=== PATIENT | female | born 1940 | race Caucasian/White ===

== ENCOUNTER 2018-04-23 10:28 | Observation (INO) | payer OTHER, MEDICARE ==
--- NOTE | 2018-04-23 10:41 | EDPHY ---
H & P Stated Complaint: Transient midsternal CP w/rad to R neck Time Seen by Provider: 04/23/18 10:40 - Personal History Current Tetanus Diphtheria and Acellular Pertussis (TDAP): Yes - Medical/Surgical History Hx Cardiac Disease: Yes Other PMH: TONSILS. D&C. CARDIAC STENT - Social History Smoking Status: Never smoked Constitutional: Initial Vital Signs Temperature (C) 36.5 C 04/23/18 10:34 Heart Rate 65 04/23/18 10:34 Respiratory Rate 16 04/23/18 10:34 Blood Pressure 145/97 H 04/23/18 10:34 O2 Sat (%) 100 04/23/18 10:34 O2 Delivery Mode Room Air Allergies/Adverse Reactions: Penicillins Allergy (Unknown, Verified 04/23/18 11:27) Unknown NSAIDS (Non-Steroidal Anti-Inflamma [Nsaids] Adverse Reaction (Intermediate, Verified 04/23/18 11:27) Abdominal Pain Home Medications: Medication Instructions Recorded NK [No Known Home Meds] 04/23/18 Medical Decision Making - Diagnostics Imaging Results: Imaging Impressions Chest X-Ray 04/23/18 10:42 Impression: 1. Mild bronchitis/airways disease. 2. No pneumonia, pleural effusion, pneumothorax, or congestive heart failure. Imaging: I viewed and interpreted images myself ED Course/Re-evaluation: CHIEF COMPLAINT: Chest pain HISTORY OF PRESENT ILLNESS: The patient is a 77 y/o female with a history of CAD with a prior stent in 2009 who complains of acute onset chest pain this morning that began in the last 45 minutes. She is quite active at baseline and biked yesterday without issue. She woke up this morning feeling normal, but around 10:00 she developed chest pain radiating bilaterally across her chest with associated sharp right jaw pain. She says, "I was thinking it was heart burn." She was at rest when symptoms began and thinks they could be related to the 3 cups of coffee she had this morning. She currently denies pain. These symptoms do not feel similar to the angina she experienced in 2010 that lead to her stent, which she primarily felt in her back and arms. She does not see life enrichment manager regularly and has had no catheterizations since 2009. She describes herself as healthy and active. REVIEW OF SYSTEMS: A comprehensive 10 system review of systems is otherwise negative aside from elements mentioned in the history of present illness and medical decision making. PHYSICAL EXAM: HR, BP, O2 Sat, RR. Temp noted General Appearance: Alert, well hydrated, appropriate, and non-toxic appearing. Head: Atraumatic without scalp tenderness or obvious injury Eyes: Pupils equal, round, reactive to light and accommodation, EOMI, no trauma , no injection. Nose: Atraumatic, no rhinorrhea, clear. Throat: There is no erythema or exudates, no lesions, normal tonsils, mucus membranes moist. Neck: Supple,nontender, no lymphadenopathy. Respiratory: No retractions, no distress, no wheezes, and no accessory muscle use. Lungs are clear to auscultation bilaterally. Cardiovascular: Regular rate and rhythm, no murmurs, rubs, or gallops. Good capillary refill all extremities. Gastrointestinal: Abdomen is soft, nontender, non-distended, no masses, no rebound, no guarding, no peritoneal signs. Musculoskeletal: Normal active ROM of all extremities, atraumatic. Neurological: Alert, appropriate, and interactive. The patient has non-focal cranial nerves, motor, sensory, and cerebellar exam. Skin: No rashes, good turgor, no nodules on palpation. Past medical history: CAD, GERD Past surgical history: Cardiac stent 2010 Family history: Noncontributory Social history: Exercises regularly. [employer]: Dr. Ruiz. DIAGNOSTICS/PROCEDURES/CRITICAL CARE TIME: The 12 lead EKG was interpreted by myself. Sinus mechanism with PVCs and PACs. See hard copy and/or "tracemaster" electronic copy for interpretation. Chest x-ray: airways disease, no infiltrate. Chest CTA: coronary calcifications, no PE DIFFERENTIAL DIAGNOSIS: The differential diagnosis for the patient's chest pain included but was not limited to myocardial ischemia, pulmonary embolus, chest wall pain, pleural inflammation, and pulmonary infectious causes. MEDICAL DECISION MAKING: This is a 77 y/o female with a history of CAD post stenting who presents with acute onset chest and jaw pain. Her exam is unremarkable. Her story and history is concerning for cardiac etiology. Plan for standard cardiac work up including IV, labs including d-dimer and troponin, EKG, chest x-ray. 324mg PO aspirin administered. Plan for admission for further evaluation and provocative cardiac work up. 1101: Consulted with Dr. Gomes, life enrichment manager. He will consult during admission. Troponin is negative. 1110: Dr. Gomes at bedside evaluating patient. D-dimer elevated at 0.82. Chest CTA ordered to rule out PE. - Data Points Laboratory Results: Laboratory Results 04/23/18 10:50 04/23/18 10:50 04/23/18 04/23/18 04/23/18 10:53 10:50 10:50 WBC RBC Hgb Hct MCV MCH MCHC RDW Plt Count MPV Neut % (Auto) Lymph % (Auto) Franklin % (Auto) Eos % (Auto) Baso % (Auto) Nucleat RBC Rel Count Absolute Neuts (auto) Absolute Lymphs (auto) Absolute Monos (auto) Absolute Eos (auto) Absolute Basos (auto) Absolute Nucleated RBC Immature Gran % Immature Gran # D-Dimer 0.82 ug/mLFEU H ug/mLFEU (0.00-0.50) Sodium 139 mEq/L mEq/L (135-145) Potassium 4.5 mEq/L mEq/L (3.3-5.0) Chloride 104 mEq/L mEq/L (97-110) Carbon Dioxide 23 mEq/l mEq/l (22-31) Anion Gap 12 mEq/L mEq/L (6-14) BUN 19 mg/dL mg/dL (7-23) Creatinine 0.9 mg/dL mg/dL (0.6-1.0) Estimated GFR > 60 Glucose 94 mg/dL mg/dL (70-100) Calcium 9.7 mg/dL mg/dL (8.5-10.4) POC Troponin I 0.00 ng/mL ng/mL (0.00-0.08) NT-Pro-B Natriuret Pep 255 pg/mL pg/mL (0-450) 04/23/18 10:50 WBC 4.50 10^3/uL 10^3/uL (3.80-9.50) RBC 4.89 10^6/uL 10^6/uL (4.18-5.33) Hgb 14.8 g/dL g/dL (12.6-16.3) Hct 44.2 % % (38.0-47.0) MCV 90.4 fL fL (81.5-99.8) MCH 30.3 pg pg (27.9-34.1) MCHC 33.5 g/dL g/dL (32.4-36.7) RDW 13.2 % % (11.5-15.2) Plt Count 196 10^3/uL 10^3/uL (150-400) MPV 10.0 fL fL (8.7-11.7) Neut % (Auto) 51.6 % % (39.3-74.2) Lymph % (Auto) 36.9 % % (15.0-45.0) Franklin % (Auto) 9.1 % % (4.5-13.0) Eos % (Auto) 1.3 % % (0.6-7.6) Baso % (Auto) 0.9 % % (0.3-1.7) Nucleat RBC Rel Count 0.0 % % (0.0-0.2) Absolute Neuts (auto) 2.32 10^3/uL 10^3/uL (1.70-6.50) Absolute Lymphs (auto) 1.66 10^3/uL 10^3/uL (1.00-3.00) Absolute Monos (auto) 0.41 10^3/uL 10^3/uL (0.30-0.80) Absolute Eos (auto) 0.06 10^3/uL 10^3/uL (0.03-0.40) Absolute Basos (auto) 0.04 10^3/uL 10^3/uL (0.02-0.10) Absolute Nucleated RBC 0.00 10^3/uL 10^3/uL (0-0.01) Immature Gran % 0.2 % % (0.0-1.1) Immature Gran # 0.01 10^3/uL 10^3/uL (0.00-0.10) D-Dimer Sodium Potassium Chloride Carbon Dioxide Anion Gap BUN Creatinine Estimated GFR Glucose Calcium POC Troponin I NT-Pro-B Natriuret Pep Medications Given: Discontinued Medications Aspirin (Aspirin) 324 mg PO EDNOW ONE Stop: 04/23/18 10:43 Last Admin: 04/23/18 10:57 Dose: 324 mg Point of Care Test Results: Chemistry 04/23/18 10:53 POC Troponin I 0.00 ng/mL ng/mL (0.00-0.08) Departure - Departure Disposition: [facility] Inpatient Acute Clinical Impression: Chest pain Qualifiers: Chest pain type: other chest pain Qualified Code(s): R07.89 - Other chest pain Condition: Fair Report Scribed for: Fletcher Yousif Report Scribed by: Ashli Baxter Date of Report: 04/23/18 Time of Report: 11:04
[2018-04-23] MEDS ORDERED: ASPIRIN 81 MG CHEWABLE TAB PO ONE (10:42)
[2018-04-23 11:06] LABS: PLATELET COUNT 196 10^3/uL (150-400)
--- NOTE | 2018-04-23 11:27 | CPEKG ---
Test Reason : OPEN Blood Pressure : / mmHG Vent. Rate : 068 BPM Atrial Rate : 068 BPM P-R Int : 123 ms QRS Dur : 074 ms QT Int : 385 ms P-R-T Axes : 000 044 020 degrees QTc Int : 410 ms Sinus rhythm Multiform ventricular premature complexes Consider left ventricular hypertrophy Confirmed by Fletcher Yousif ([id number]) on 04/23/2018 11:26:43 AM Referred By: Confirmed By:Fletcher Yousif
--- NOTE | 2018-04-23 11:42 | ASMTCMCOM ---
CM Note CM Note Notes: Pt presented to the Emergency Department with midsternal chest pain. History includes cardiac stenting in 2009. Pt is single and lives alone. Pt to be admitted for further evaluation and treatment. Discharge needs remain unclear. Anticipate pt will likely discharge home independently with no identified needs when medically stable. CM will continue to follow. Discharge Plan: To be determined Date Signed: 04/23/2018 11:41 AM Electronically Signed By:Alejandra Law RN
[2018-04-23] MEDS ORDERED: IOPAMIDOL (ISOVUE 370) 100 ML BTL IV ONE (12:12)
--- NOTE | 2018-04-23 12:13 | PDCARCONS ---
Cardiology Consult Reason for Consult: Chest discomfort Chief Complaint: Chest discomfort Requesting Physician: ER Team History of Present Illness: Patient is a 77 y/o female with history of CAD s/p PCI to the LAD about 8 years ago (Dr. Ginette Ruiz), but no history of HTN, HLP, or DM, who presents to [facility] [place] with complaints of chest discomfort. Discomfort was a 4/10, localizing to the substernal region, but radiating into the right jaw and shoulder. Duration of the symptoms was about 20 minutes (noted about 10 am this morning). Given these symptoms, the patient (and son) proceed to the ER for evaluation. In the ER, labs (cardiac biomarkers) and ECG were obtained, which did not reveal any gross pathology. No follow up with cardiology has been undertaken since the stent placement. Patient is on no medications - not even ASA therapy - given "GI issues" noted in the past. Patient exercises regularly, and has not noted any symptoms with this activity. Patient was on her way to a memorial for a friend who after thinking symptoms were due to "reflux". Remainder of the 12 point review of systems was unremarkable. History Information - Allergies/Home Medication List Allergies/Adverse Reactions: Penicillins Allergy (Unknown, Verified 04/23/18 11:27) Unknown NSAIDS (Non-Steroidal Anti-Inflamma [Nsaids] Adverse Reaction (Intermediate, Verified 04/23/18 11:27) Abdominal Pain Home Medications: NK [No Known Home Meds] 04/23/18 [Last Taken Unknown] I have personally reviewed and updated: family history, medical history, social history, surgical history Past Medical History: - Past Medical History coronary artery disease Additional medical history: suspect HTN as diagnosis given the patient's blood pressure elevation in the ER - Surgical History Reports: no pertinent surgical hx - Family History Positive for: non-pertinent - Social History Smoking Status: Never smoked Alcohol Use: None Drug Use: None Cardiac History - Cardiac History Past Cardiac History: CAD, PCI Cardiac Risk Factors: hypertension (>140/90), age > 65 Timing/Duration: Minutes Severity: moderate Severity Scale: 4 Location: substernal, central Activities at Onset: none Modifying Factors: improves with: lying down, rest Associated Symptoms: chest pain SHAWN Risk Evaluation age greater or equal to 65: yes greater or equal to 3 CAD risk factors: yes known CAD(stenosis greater or eqaul to 50%): yes ASA use in past 7 days: no severe angina(greater or equal to 2 episodes in 24hrs): no EKG ST changes greater or equal to 0.5mm: no positive cardiac marker: no Total Score: 3 SHAWN Score: 13.2% risk Physical Exam Physical Exam: Temp Pulse Resp BP Pulse Ox 36.5 C 75 16 159/101 H 93 04/23/18 10:34 04/23/18 11:30 04/23/18 11:30 04/23/18 11:30 04/23/18 11:30 Constitutional: no apparent distress, appears nourished, not in pain Eyes: PERRL, EOMI Ears, Nose, Mouth, Throat: moist mucous membranes, hearing normal, ears appear normal Cardiovascular: regular rate and rhythym, no murmur, rub, or gallop, pulses symmetric bilaterally, No JVD Peripheral Pulses: 2+: dorsalis-pedis (R), dorsalis-pedis (L) Respiratory: no respiratory distress, no rales or rhonchi, clear to auscultation Gastrointestinal: normoactive bowel sounds Skin: warm Musculoskeletal: full muscle strength, normal joint ROM Neurologic: AAOx3, sensation intact bilaterally, CN II-XII Intact Psychiatric: interacting appropriately, not anxious, not encephalopathic Lab and Imaging 04/23/18 10:50 04/23/18 10:50 WBC 4.50 10^3/uL (3.80-9.50) 04/23/18 10:50 RBC 4.89 10^6/uL (4.18-5.33) 04/23/18 10:50 Hgb 14.8 g/dL (12.6-16.3) 04/23/18 10:50 Hct 44.2 % (38.0-47.0) 04/23/18 10:50 MCV 90.4 fL (81.5-99.8) 04/23/18 10:50 MCH 30.3 pg (27.9-34.1) 04/23/18 10:50 MCHC 33.5 g/dL (32.4-36.7) 04/23/18 10:50 RDW 13.2 % (11.5-15.2) 04/23/18 10:50 Plt Count 196 10^3/uL (150-400) 04/23/18 10:50 MPV 10.0 fL (8.7-11.7) 04/23/18 10:50 Neut % (Auto) 51.6 % (39.3-74.2) 04/23/18 10:50 Lymph % (Auto) 36.9 % (15.0-45.0) 04/23/18 10:50 Leon % (Auto) 9.1 % (4.5-13.0) 04/23/18 10:50 Eos % (Auto) 1.3 % (0.6-7.6) 04/23/18 10:50 Baso % (Auto) 0.9 % (0.3-1.7) 04/23/18 10:50 Nucleat RBC Rel Count 0.0 % (0.0-0.2) 04/23/18 10:50 Absolute Neuts (auto) 2.32 10^3/uL (1.70-6.50) 04/23/18 10:50 Absolute Lymphs (auto) 1.66 10^3/uL (1.00-3.00) 04/23/18 10:50 Absolute Monos (auto) 0.41 10^3/uL (0.30-0.80) 04/23/18 10:50 Absolute Eos (auto) 0.06 10^3/uL (0.03-0.40) 04/23/18 10:50 Absolute Basos (auto) 0.04 10^3/uL (0.02-0.10) 04/23/18 10:50 Absolute Nucleated RBC 0.00 10^3/uL (0-0.01) 04/23/18 10:50 Immature Gran % 0.2 % (0.0-1.1) 04/23/18 10:50 Immature Gran # 0.01 10^3/uL (0.00-0.10) 04/23/18 10:50 D-Dimer 0.82 ug/mLFEU (0.00-0.50) H 04/23/18 10:50 Sodium 139 mEq/L (135-145) 04/23/18 10:50 Potassium 4.5 mEq/L (3.3-5.0) 04/23/18 10:50 Chloride 104 mEq/L (97-110) 04/23/18 10:50 Carbon Dioxide 23 mEq/l (22-31) 04/23/18 10:50 Anion Gap 12 mEq/L (6-14) 04/23/18 10:50 BUN 19 mg/dL (7-23) 04/23/18 10:50 Creatinine 0.9 mg/dL (0.6-1.0) 04/23/18 10:50 Estimated GFR > 60 04/23/18 10:50 Glucose 94 mg/dL (70-100) 04/23/18 10:50 Calcium 9.7 mg/dL (8.5-10.4) 04/23/18 10:50 POC Troponin I 0.00 ng/mL (0.00-0.08) 04/23/18 10:53 NT-Pro-B Natriuret Pep 255 pg/mL (0-450) 04/23/18 10:50 Visualized and Interpreted Chest x-ray results: Yes Chest X-ray Interpretation: no infiltrate Visualized and Interpreted EKG results: Yes EKG Interpretation: Positive for: normal sinsus rhythm Telemetry: normal sinus rhythm A/P Assessment: Patient is a 77 y/o female with known history of CAD s/p PCI to the LAD about 8 years ago, HTN in the ER (but not on any therapy), and no history of DM or HLP ( per her reports), who presents to the ER at [facility] with complaints of chest pains and radiation of this discomfort into the neck and shoulder. No dynamic ST/T wave changes were noted on the ECG. Cardiac biomarkers were grossly normal ( Troponin was 0). ASCVD risk calculator (with assumed normal total cholesterol and HDL) was 25.5%. Possible "mild" symptoms continue - if anything a "presence " rather than an absolute symptom. Patient wanting to go home, but we are requesting the patient stay to be ruled out and challenged with either MPI or angiography. Son was present with the patient in the ER, and assisted with convincing the patient to stay for 23 hours. Plan: Cardiovascular recommendations (1) Would add low dose EC ASA therapy (81 mg per day) (2) Would have cholesterol assessment to determine if this risk factor is in need of further management (3) Blood pressure elevation was noted in the ER, and should this elevation continue to be noted once she has left the ER, would implement therapy (ACEi would be preferred, but beta blockers or CCB therapy is also acceptable) (4) Would cycle cardiac biomarkers (Q8 hours) with ECG (5) If normal labs continue to be noted, would arrange for MPI testing (this is preferred given the volume of this testing in this facility). The patient also mentioned a desire for "echo stress testing" which could be arranged (6) If abnormal cardiac biomarkers noted OR dynamic ECG changes, would pursue angiography (7) ER is going to perform CT rule out PE given the elevation to the D-dimer Will speak to Dr. Ginette Ruiz about the patient (she had seen him for the stent placement in the past, but never followed up after....)
[2018-04-23] MEDS ORDERED: NITROGLYCERIN 0.4 MG BTL SL PRN (13:01)
--- NOTE | 2018-04-23 13:34 | GHP ---
DATE OF ADMISSION: 04/23/2018 CHIEF COMPLAINT: Chest pain. HISTORY OF PRESENT ILLNESS: 77-year-old female presents with chest pain. She has a history of a stent to her LAD in 2009. She has not seen a director of broadcast for years, has been off all of her cardiac medications for years. She describes the pain as being a sharp ache, which started in her sternal area, radiated to her right neck. It lasted about 20 minutes. It occurred while she was driving. It did not feel like the chest pain that she had, which led to the stent 8 years ago. It has now completely resolved. She is normally quite active, exercises, has actually won her division in the [employer] last year. She has not had any decrease in her functional status, gets no worsening shortness of breath or chest pain while exercising. She has no lower extremity edema. PAST MEDICAL/SURGICAL HISTORY: 1. Wrist surgery. 2. Cervical polyp removed. 3. Tonsillectomy and adenoidectomy as a child. MEDICATIONS: Please see medication reconciliation. ALLERGIES: Penicillin and NSAIDs. FAMILY HISTORY: No heart disease. SOCIAL HISTORY: She very rarely drinks. She does not smoke. She is accompanied by her son. REVIEW OF SYSTEMS: A 10-point review of systems is conducted and is negative, except per HPI. PHYSICAL EXAM: VITAL SIGNS: Blood pressure 116/88, heart rate 74, respiration rate 16, saturating 95% on room air, temperature 36.8. GENERAL: The patient is a very pleasant female who is resting comfortably in no acute distress. HEENT: Normocephalic, atraumatic. CARDIOVASCULAR: Regular rate and rhythm. No murmurs, rubs, or gallops. No lower extremity edema. No elevated JVD. PULMONARY: Lungs clear to auscultation bilaterally. ABDOMEN: Soft, nontender , nondistended. SKIN: No rash. : No Lee. NEUROLOGIC: Alert and oriented x3. She is moving all extremities. PSYCHIATRIC: Normal mood and affect. LABORATORY DATA: CBC is normal. D-dimer 0.8. Basic metabolic panel is normal. Troponin is negative. BNP is negative. DATA: 1. Discussed with Dr. Gomes. Will admit to PCU. 2. Chest x-ray, which I personally reviewed and interpreted, shows nothing acute. 3. EKG, which I personally reviewed and interpreted, shows sinus rhythm. She has 1 PVC, 1 PAC. There is no clear ischemia here. ASSESSMENT/PLAN: Chest pain: She will be admitted to the PCU and monitored on telemetry. Troponins will be trended. CT angiogram of her lungs is pending, will follow up on this. Cardiology is involved given her history of a left anterior descending stent. If she rules out for acute coronary syndrome, would defer workup to Cardiology regarding appropriate ischemic evaluation. I discussed all this with her son. This is a high-risk diagnosis. /[id number]/MODL MTDD
[2018-04-24] MEDS ORDERED: MAG HYDROX/AL HYDROX/SIMETH 30 ML UDCUP PO PRN (08:58)
[2018-04-24] MEDS ORDERED: CALCIUM CARBONATE 500 MG CHEWABLE TAB PO PRN (08:58)
[2018-04-24] MEDS ORDERED: ASPIRIN 81 MG CHEWABLE TAB PO SCH (09:00)
[2018-04-24] MEDS ORDERED: PANTOPRAZOLE SODIUM 40 MG TAB PO SCH (09:00)
--- NOTE | 2018-04-24 10:58 | PDCARPN ---
Cardiology Progress Note Chief Complaint: No cardiovascular complaints. Mild throat tightness does continue to be noted, but not to the degree that the patient is concerned Assessment/Plan: Assessment: 04-24-18 Patient is doing well today. No chest pains or pressure have been noted overnight. No cardiac enzyme elevation was noted, and no dynamic ECG changes were appreciated. Cholesterol was ordered this morning after the patient reported that it has been "years" since this testing was performed. Total cholesterol, TRI, and HDL were all well controlled, but the LDL was noted to be elevated to 129 mg/dL. Stress echocardiography is pending early this afternoon. CT to rule out pulmonary embolism in the ER was without thrombus noted, but there was heavy calcium burden to the LAD. 04-23-18 Patient is a 77 y/o female with history of CAD s/p PCI to the LAD about 8 years ago (Dr. Ginette Ruiz), but no history of HTN, HLP, or DM, who presents to [facility] [place] with complaints of chest discomfort. Discomfort was a 4/10, localizing to the substernal region, but radiating into the right jaw and shoulder. Duration of the symptoms was about 20 minutes (noted about 10 am this morning). Given these symptoms, the patient (and son) proceed to the ER for evaluation. In the ER, labs (cardiac biomarkers) and ECG were obtained, which did not reveal any gross pathology. No follow up with cardiology has been undertaken since the stent placement. Patient is on no medications - not even ASA therapy - given "GI issues" noted in the past. Patient exercises regularly, and has not noted any symptoms with this activity. Patient was on her way to a memorial for a friend who after thinking symptoms were due to "reflux". Plan: (1) Would proceed with stress echocardiography this afternoon. (2) Given the elevation to the LDL that has been noted, cardiology would recommend statin therapy - Crestor 10 mg per day - reassessment of cholesterol and LFTs in 5 weeks (with consistent therapy) (3) Further recommendations for the patient to be on low dose ASA therapy given CAD with PCI Further recommendations after testing has been completed Subjective: No cardiovascular complaints Reviewed/Discussed With: family, hospitalist Objective: Vital Signs (8 Hrs) Temp Pulse Resp BP Pulse Ox 04/24/18 08:06 36.4 C 56 L 16 120/71 96 04/24/18 04:00 36.5 C 76 12 125/72 H 95 Intake/Output (24 Hrs) 04/23/18 04/24/18 04/25/18 05:59 05:59 05:59 Intake Total 700 Balance 700 Intake: Oral (ml) 700 Other: Weight 56.245 kg Number of Voids 1 Toilet 2 Result Diagrams: 04/23/18 10:50 04/23/18 10:50 Cardiac Labs: Cardiac Lab Results (72 Hrs) 04/24/18 04/23/18 01:15 18:20 Troponin I < 0.012 < 0.012 Telemetry: normal sinus rhythm - Physical Exam Constitutional: WDWN, healthy appearing, no apparent distress Eyes: PERRL, EOMI Ears, Nose, Mouth, Throat: moist mucous membranes Cardiovascular: regular rate and rhythm, no murmurs, no rubs, no gallops, pulses symmetric bilat, No jugular vein distention Peripheral Pulses: 2+: dorsalis-pedis (R), dorsalis-pedis (L) Respiratory: clear to auscultate bilat, no crackles Gastrointestinal: normoactive bowel sounds Skin: no rashes, no edema Musculoskeletal: no muscular tenderness Neurologic: AAOx3, CN II-XII grossly intact Psychiatric: cooperative, interactive, following commands ICD10 Worksheet Patient Problems: Problems Problem Status Onset Chest pain Acute
--- NOTE | 2018-04-24 14:40 | ASMTLACE ---
LACE Length of stay for Answers: 1 day current admission Acuity / Level of Answers: No Care: Did the patient have an inpatient admission? Comorbidities - select Answers: Coronary Artery Disease all that apply Other Notes: Prior cardiac stenting 2009 # of Emergency department Answers: 1-2 visits in the last 6 months Score: 5 Date Signed: 04/24/2018 02:40 PM Electronically Signed By:Melissa Seaman RN
--- NOTE | 2018-04-24 14:42 | ASMTDCNOTE ---
Case Management Discharge Discharge Order Complete? Answers: Yes Patient to Obtain Answers: Independently Medications Transportation Arranged Answers: Family/Friends Discharge Comments Notes: Pt to discharge home independent with folllow up as directed. There were no therapy evals ordered on this admission. Discussed lesly HAMEED, pt ambulates without difficulties. No case management d/c needs identified. Date Signed: 04/24/2018 02:42 PM Electronically Signed By:Melissa Seaman RN
--- NOTE | 2018-04-24 15:01 | PDCARST ---
CAR Stress Test Results Type of Stress Test: Stress echocardiography Indication: Chest pains with history of CAD and PCI (to LAD) Description of Procedure: After consents were obtained, and flow of the procedure (rest images, treadmill stress, symptom monitoring, and post exercise echocardiography), patient was started on standard Brice Protocol. Total exercise time was 8:55 minutes. No chest pains. No ECG changes were noted. Adams Treadmill Score was +8. Pre exercise echo with normal wall motion and normal systolic function. Post exercise echo with hyperdynamic LV function and no appreciable wall motion abnormalities Impression: Adams treadmill score was +8. Normal wall motion with normal systolic function pre- and post-exercise Conclusion: Normal stress echocardiography
--- NOTE | 2018-04-24 15:04 | PDCONSULT ---
Certified Legal Investigator Note: Normal stress echocardiography Cardiology with recommendations for patient to start therapy on (1) low dose ASA therapy (81 mg per day) (2) Crestor 10 mg per day - plans for patient to have reassessment of cholesterol and LFTs in 5 weeks with cardiology, and follow up in the outpatient setting Would have patient follow up with [facility] in 6 weeks Maintain uninterrupted therapy on ASA and Crestor (side effects of both ASA and statins were discussed with patient post stress echocardiography)
[2018-04-24 15:30] VITALS: BP 141/79
--- NOTE | 2018-04-24 16:26 | PDDCSUM ---
Discharge Summary Discharge Summary: DISCHARGE SUMMARY FOLLOW-UP ITEMS: Repeat LDL and liver panel in 5 weeks with results to Dr. Gomes DATE OF ADMISSION: 04/23/2018 DATE OF DISCHARGE: 04/24/2018 DISCHARGE DIAGNOSES: 1. Acute chest pain 2. Suspected GERD 3. Chronic coronary artery disease CONSULTATIONS: Cardiology PROCEDURES / IMAGING: Echo stress test demonstrating no inducible ischemia CHIEF COMPLAINT: Acute chest pain SUBJECTIVE: Chest pain is completely resolved PHYSICAL EXAM ON DISCHARGE: Systolic blood pressure is 120, heart rate 50 60, afebrile night, satting well on room air, alert awake oriented x3, breathing is normal LABS ON DISCHARGE: Troponin negative x2, LDL 129 HOSPITAL COURSE BY PROBLEM: Patient presented with acute chest pain most likely secondary to GERD, ruled out for acute coronary syndrome with negative troponin x2 and no ischemic changes on EKG. She was ruled out for inducible ischemia with a normal stress echo and was re-initiated on cardioprotective medications given that she has underlying known LAD coronary artery disease with previous stenting. Cardiology recommended we initiating aspirin 81 mg daily as well as Crestor 10 mg daily. Since the most likely cause of her chest discomfort is GERD, we recommended supportive relief with [id number] Tums, Maalox, and initiation of proton pump inhibitor if needed. The patient is hesitant to initiate proton pump inhibitor but will otherwise initiate her supportive medications. Recommend that she follow up with her primary care provider for further discussion, and she also has gastroenterology resources if her symptoms worsen. DISCHARGE MEDICATIONS: Please see official discharge medication reconciliation sheet in chart , aspirin 81 mg daily, Crestor 10 mg daily, Tums as needed, Maalox as needed. DISCHARGE INSTRUCTIONS: Please follow up with her primary care provider within 2 weeks, [address] Foreign Gomes in approximately 6 weeks, liver panel and LDL to be drawn prior to that appointment.
--- NOTE | 2018-04-25 14:24 | CPEKG ---
Test Reason : OPEN Blood Pressure : / mmHG Vent. Rate : 062 BPM Atrial Rate : 062 BPM P-R Int : 112 ms QRS Dur : 081 ms QT Int : 431 ms P-R-T Axes : -63 048 045 degrees QTc Int : 438 ms Sinus or ectopic atrial rhythm Atrial premature complex Variable 'p' wave morphologies Confirmed by Foreign Gomes ([id number] on 04/25/2018 2:24:19 PM Referred By: Confirmed By:Foreign Gomes
== END 2018-04-24 16:30 | disposition home or self-care (01) ==
LOC: F2W 13:04
PROVIDERS: ADMIT Internal Medicine; ATTEND Internal Medicine
DX: R07.9 Chest pain, unspecified (principal); K21.9 Gastro-esophageal reflux disease without esophagitis; R03.0 Elevated blood-pressure reading, without diagnosis of hypertension; I25.10 Atherosclerotic heart disease of native coronary artery without angina pectoris; Z95.5 Presence of coronary angioplasty implant and graft; Z88.0 Allergy status to penicillin
CPT/HCPCS: 71046; 71275; 93005; 99285; G0378; Q9967; 84484-PO